=== PATIENT | female | born 1980 | race Caucasian/White ===

== ENCOUNTER 2018-07-20 21:55 | Observation (INO) | payer OTHER ==
[~2018-07-20] VITALS: Ht 157.5 cm; Wt 59.0 kg
[~2018-07-20 21:55] MED LIST: AMOXICILLIN/POTASSIU; CLONAZEPAM 0.50.5 M1 PO; COLACE100 MG PO; CYCLOBENZAPRINE; CYCLOBENZAPRINE5 MG PO; DICLOFENAC SODI75 M1 PO; DICLOFENAC SODI75 MG PO; FISH OIL 1,0001 EAC5 PO; GOLYTELY SOLU4000 ML PO; KEPPRA 500 MG500 MG PO; LO LOESTRIN FE1 EACH PO; LOESTRIN 24 FE1 EACH PO; PERCOCET 5-3251 EACH PO; THERAGRAN-M AD1 EACH; TOPROL XL25 MG PO; VITAMIN D1000 UNI1 PO
[2018-07-20 21:59] VITALS: BP 115/68
[2018-07-20] MEDS ORDERED: TOPAMAX 100 MG100 MG PO (22:08)
[2018-07-20] MEDS ORDERED: FOLIC ACID1 MG PO (22:10)
[2018-07-20] MEDS ORDERED: MS CONTIN 30 MG30 MG PO (22:10)
[2018-07-20] MEDS ORDERED: AMBIEN 5 MG TABL5 M1 PO (22:12)
[2018-07-20] MEDS ORDERED: ORENCIA CL125 MG/1 M SUBQ (22:13)
[2018-07-20] MEDS ORDERED: METHOTREXATE 22.5 MG PO (22:14)
[2018-07-20] MEDS ORDERED: PHENERGAN 25 MG25 M1 PO (22:16)
[2018-07-20] MEDS ORDERED: IMITREX100 MG PO (22:17)
[2018-07-20] MEDS ORDERED: LASIX 20 MG TAB20 MG PO (22:18)
[2018-07-20 22:43] LABS: HEMATOCRIT 53.8 % (37.0-47.0); HEMOGLOBIN 17.3 gm/dL (12.0-15.0); MCH 30.3 pg (26.0-34.0); MCHC 32.2 g/dL (28.0-37.0); MPV 7.2 fl. (7.2-11.1); NUCLEATED RBCS 0 /100WBC; PLATELET COUNT* 509 thou/uL (150-400); RBC 5.73 mil/uL (4.20-5.00); RDW-CV 13.9 % (10.5-14.5); WBC 14.2 thou/uL (4.0-11.0)
[2018-07-20 23:05] LABS: ALBUMIN 4.9 g/dL (3.4-5.0); CALCIUM 11.3 mg/dL (8.5-10.1); MAGNESIUM 2.1 mg/dL (1.8-2.4); POTASSIUM 4.1 mmol/L (3.5-5.1); TOTAL BILIRUBIN 0.3 mg/dL (<0.1-1.0); TOTAL PROTEIN 9.5 g/dL (6.4-8.2)
[2018-07-21 00:28] LABS: ABSOLUTE LYMPHOCYTES 1.6 thou/uL (0.8-5.3); ABSOLUTE MONOCYTES 0.3 thou/uL (0.0-1.2); ABSOLUTE NEUTROPHILS 12.4 thou/uL (1.6-8.1); PLATELET ESTIMATE INCREASED
[2018-07-21 00:29] LABS: LARGE PLATELETS OCCASIONAL
[2018-07-21 01:00] VITALS: BP 118/60
[2018-07-21 04:00] VITALS: BP 122/64
[2018-07-21 08:15] LABS: CALCIUM 9.5 mg/dL (8.5-10.1); CREATININE 1.1 mg/dL (0.6-1.3); PHOSPHORUS* 5.2 mg/dL (2.5-4.9)
[2018-07-21 08:34] VITALS: BP 107/61
[2018-07-21 10:24] LABS: URINE BLOOD NEGATIVE (Negative); URINE CLARITY CLEAR; URINE COLOR YELLOW; URINE GLUCOSE-RANDOM NEGATIVE (Negative); URINE KETONES 1+ (Negative); URINE LEUKOCYTES-REFLEX NEGATIVE (Negative); URINE NITRITE-REFLEX NEGATIVE (Negative); URINE PROTEIN NEGATIVE (Negative); URINE SPECIFIC GRAVITY >= 1.030 (1.005-1.030); URINE UROBILINOGEN 0.2 E.U./dl (0.2-1.0)
[2018-07-21 10:25] LABS: ICTOTEST (BILI CONFIRMATORY) Negative (Negative); URINE BILIRUBIN 2+ (Negative)
[2018-07-21] MEDS ORDERED: THERA-M CAPLET1 EAC2 PO (10:42)
[2018-07-21 10:49] VITALS: BP 107/61
[2018-07-21 11:52] VITALS: BP 108/59
[2018-07-21] MEDS ORDERED: METOPROLOL SUCC25 M1 PO (12:51)
[2018-07-21] MEDS ORDERED: SENNA S TABLET1 EACH PO (12:51)
== END 2018-07-21 15:38 | disposition home or self-care (01) ==
LOC: M.ERS 21:55 → M.TBA-ER 07-21 00:29 → M.2W 07-21 00:29
PROVIDERS: Personal Emergency Response Attendant; ADMIT Internal Medicine
DX: E86.0 Dehydration (principal); K59.03 Drug induced constipation; A08.4 Viral intestinal infection, unspecified; T40.2X5A Adverse effect of other opioids, initial encounter; M08.00 Unspecified juvenile rheumatoid arthritis of unspecified site; R11.2 Nausea with vomiting, unspecified; I47.1 Supraventricular tachycardia; N18.3 Chronic kidney disease, stage 3 (moderate); G89.29 Other chronic pain; G62.9 Polyneuropathy, unspecified; E87.5 Hyperkalemia; Z85.841 Personal history of malignant neoplasm of brain; Z98.890 Other specified postprocedural states; Z88.2 Allergy status to sulfonamides; Z91.041 Radiographic dye allergy status; Z88.8 Allergy status to other drugs, medicaments and biological substances; Z79.899 Other long term (current) drug therapy; Z90.49 Acquired absence of other specified parts of digestive tract

== ENCOUNTER 2018-12-26 15:11 | Emergency (ER) | payer OTHER ==
[~2018-12-26] VITALS: Ht 152.4 cm; Wt 63.5 kg
[~2018-12-26 15:11] MED LIST changes: +AMBIEN 5 MG TABL5 M1 PO; +FOLIC ACID1 MG PO; +IMITREX100 MG PO; +LASIX 20 MG TAB20 MG PO; +METHOTREXATE 22.5 MG PO; +METOPROLOL SUCC25 M1 PO; +MS CONTIN 30 MG30 MG PO; +ORENCIA CL125 MG/1 M SUBQ; +PHENERGAN 25 MG25 M1 PO; +SENNA S TABLET1 EACH PO; +THERA-M CAPLET1 EAC2 PO; +TOPAMAX 100 MG100 MG PO
[2018-12-26 15:43] LABS: URINE BILIRUBIN NEGATIVE (Negative); URINE BLOOD NEGATIVE (Negative); URINE COLOR YELLOW; URINE GLUCOSE-RANDOM NEGATIVE (Negative); URINE KETONES NEGATIVE (Negative); URINE PROTEIN NEGATIVE (Negative); URINE SPECIFIC GRAVITY 1.015 (1.005-1.030); URINE UROBILINOGEN 0.2 E.U./dl (0.2-1.0)
[2018-12-26 15:44] LABS: URINE CLARITY HAZY; URINE LEUKOCYTES-REFLEX 2+ (Negative); URINE NITRITE-REFLEX POSITIVE (Negative)
[2018-12-26] MEDS ORDERED: KEFLEX500 M1 PO ×4 (15:46→15:51)
[2018-12-26] MEDS ORDERED: PHENAZOPYRIDIN200 M2 PO ×3 (15:48→15:51)
[2018-12-26 15:50] LABS: BACTERIA-REFLEX >30 Many /HPF (None Seen); CASTS None Seen /LPF (None Seen); CRYSTALS None Seen /LPF (None Seen); SQUAMOUS 0-3 Few /LPF (0-3); URINE RBC None Seen /HPF (0-2); URINE WBC-REFLEX >25 Many /HPF (0-5)
[2018-12-26 16:00] VITALS: BP 105/45
== END 2018-12-26 16:03 | disposition home or self-care (01) ==
LOC: M.ERS 15:11
PROVIDERS: Emergency Medicine Emergency Medical Services
DX: N39.0 Urinary tract infection, site not specified (principal); Z91.041 Radiographic dye allergy status; Z88.2 Allergy status to sulfonamides; Z88.6 Allergy status to analgesic agent; Z88.5 Allergy status to narcotic agent; Z90.49 Acquired absence of other specified parts of digestive tract

== ENCOUNTER 2019-01-20 05:58 | Observation (INO) | payer OTHER ==
[~2019-01-20] VITALS: Ht 157.5 cm; Wt 60.7 kg
[~2019-01-20 05:58] MED LIST changes: +KEFLEX500 M1 PO; +PHENAZOPYRIDIN200 M2 PO
[2019-01-20 06:12] VITALS: BP 118/77
[2019-01-20 06:39] LABS: HEMATOCRIT 48.9 % (37.0-47.0); HEMOGLOBIN 16.1 gm/dL (12.0-15.0); MCH 31.5 pg (26.0-34.0); MCV 95.4 fL (80.0-100.0); MPV 7.9 fl. (7.2-11.1); NUCLEATED RBCS 0 /100WBC; PLATELET COUNT* 510 thou/uL (150-400); RBC 5.12 mil/uL (4.20-5.00); RDW-CV 13.8 % (10.5-14.5)
[2019-01-20 06:43] LABS: CALCIUM 9.8 mg/dL (8.5-10.1); CREATININE 1.1 mg/dL (0.6-1.3); POTASSIUM 3.1 mmol/L (3.5-5.1)
[2019-01-20 06:47] LABS: ALBUMIN 4.8 g/dL (3.4-5.0); TOTAL BILIRUBIN 0.4 mg/dL (<0.1-1.0); TOTAL PROTEIN 8.9 g/dL (6.4-8.2)
[2019-01-20 07:43] LABS: ABSOLUTE LYMPHOCYTES 1.1 thou/uL (0.8-5.3); ABSOLUTE MONOCYTES 0.4 thou/uL (0.0-1.2); ABSOLUTE NEUTROPHILS 12.5 thou/uL (1.6-8.1); PLATELET ESTIMATE INCREASED
[2019-01-20 09:25] LABS: URINE BLOOD NEGATIVE (Negative); URINE CLARITY CLEAR; URINE COLOR YELLOW; URINE GLUCOSE-RANDOM NEGATIVE (Negative); URINE KETONES 1+ (Negative); URINE LEUKOCYTES-REFLEX NEGATIVE (Negative); URINE NITRITE-REFLEX NEGATIVE (Negative); URINE PROTEIN TRACE (Negative); URINE SPECIFIC GRAVITY 1.025 (1.005-1.030); URINE UROBILINOGEN 0.2 E.U./dl (0.2-1.0)
[2019-01-20 09:27] LABS: ICTOTEST (BILI CONFIRMATORY) Negative (Negative); URINE BILIRUBIN 1+ (Negative)
--- NOTE | 2019-01-20 10:01 | EKG ---
[place] [address] ELECTROCARDIOGRAM REPORT Name: SYDNI CALDWELL Room: [place] [address] ADM IN [facility]#: [id number] Admission: 01/20/19 Attend Phys: Jeffery Quick, Discharge: Date of : 82 Report #: [id number] THIS REPORT FOR: //name// [facility] ED Test Date: 2019-01-20 Test Time: 06:45:49 Pat Name: SYDNI CALDWELL Department: Room: [facility] Gender: F Supply Chain Logistics Manager: KALIE : 1980 Requested By: Annia Burnett Order Number: [id number] MD: Yuri Diaz Measurements Intervals [place] Rate: 67 P: 13 MI: 122 QRS: 24 QRSD: 104 T: 49 QT: 594 QTc: 628 Interpretive Statements Sinus rhythm RSR' in V1 or V2, right VCD or RVH Prolonged QT interval Compared to ECG 03/21/2006 15:36:27 RSR' in V1 or V2 now present Prolonged QT interval now present Sinus tachycardia no longer present Electronically Signed On 01-20-2019 10:01:23 CDT by Yuri Diaz [email or web address] <ELECTRONICALLY SIGNED> By: Yuri Diaz MD, FACC 01/20/19 1001 [id number] Yuri Diaz MD, FACC /EPI
[2019-01-20 12:01] VITALS: BP 122/56
[2019-01-20 17:02] VITALS: BP 102/58
[2019-01-20 17:15] VITALS: BP 94/44
--- NOTE | 2019-01-20 18:32 | NUR ---
PT ADMITTED TO ROOM 223 VIA BED FROM ED AT APPROXIMATELY 1715 WITH NAUSEA, VOMITING AND DEHYDRATION. PT COMPLAINS OF NAUSEA AND GENERALIZED PAIN. TREATED WITH SCHEDULED COMPAZINE AND PRN FLEXERIL AND PERCOCET WITH PARTIAL RELIEF. ADMISSION ASSESSMENT AND HISTORY COMPLETED. REFER TO CHARTING. HOME MEDICATIONS RECONCILED. SEPSIS SCREENING COMPLETED-NEGATIVE. PT A&0X4, TRACING SR ON THE PHOTO MASK INSPECTOR. CARDIO CONSULT IN PLACE FOR HISTORY SVT. ON RA SAT 96%, DENIES ANY SHORTNESS OF BREATH. IVF. PT UP AD TIFFANI IN ROOM. STOOL SAMPLE NEEDS TO BE OBTAINED. PT AT BEDSIDE. MEDICATIONS PER MAR. PT REPOSITIONS SELF. HOURLY ROUNDING OBSERVED. BED IN LOW POSITION. CALL LIGHT WITHIN REACH. WILL CONTINUE PLAN OF CARE.
[2019-01-20 19:45] VITALS: BP 95/47
[2019-01-21 00:35] VITALS: BP 96/52
[2019-01-21 04:00] VITALS: BP 100/53
--- NOTE | 2019-01-21 05:32 | NUR ---
PT SLEPT MOST OF SHIFT. ASSESSMENT DOCUMENTED. MEDS GIVEN PER E-MAR. IV PATENT, FLUIDS INFUSING. PAIN MEDS GIVEN PER E-MAR WITH RELIEF. PT REPORTED RESOLVED NAUSEA. PT STATES HER ALLERGIES ARE STARTING TO BOTHER HER. WILL CONTINUE WITH PLAN OF CARE.
[2019-01-21 05:42] LABS: MCH 32.5 pg (26.0-34.0); MCHC 33.9 g/dL (28.0-37.0); RBC 3.44 mil/uL (4.20-5.00); RDW-CV 13.7 % (10.5-14.5); WBC 8.5 thou/uL (4.0-11.0)
[2019-01-21 05:53] LABS: HEMOGLOBIN 11.2 gm/dL (12.0-15.0)
[2019-01-21 06:20] LABS: ALBUMIN 2.7 g/dL (3.4-5.0); CALCIUM 7.6 mg/dL (8.5-10.1); CREATININE 0.7 mg/dL (0.6-1.3); MAGNESIUM 1.8 mg/dL (1.8-2.4); POTASSIUM 3.5 mmol/L (3.5-5.1); TOTAL BILIRUBIN 0.4 mg/dL (<0.1-1.0); TOTAL PROTEIN 5.2 g/dL (6.4-8.2)
[2019-01-21 08:00] VITALS: BP 109/61
--- NOTE | 2019-01-21 09:00 | NUR ---
ASSUMED CARE OF PT AT 0730. PT RESTING IN BED WAITING FOR BREAKFAST. PT A&0X4, DENIES ANY PAIN, NAUSEA OR SHORTNESS OF BREATH AT THIS TIME. TRACING SR ON THE WIRE SAW OPERATOR. ON RA SAT UPPER 90'S. PT UP AD TIFFANI IN ROOM. PT GOAL FOR TODAY IS REMAIN FREE FROM NAUSEA, CARDIOLOGY CONSULT IN PLACE AND OBTAIN STOOL SAMPLE. AM ASSESSMENT CHARTED. MEDICATIONS PER MAR. PT REPOSITIONS SELF. HOURLY ROUNDING OBSERVED. BED IN LOW POSITION. CALL LIGHT WITHIN REACH. WILL CONTINUE PLAN OF CARE.
[2019-01-21 12:14] VITALS: BP 106/60
--- NOTE | 2019-01-21 12:24 | NUR ---
MET WITH PT TO DISCUSS HOME SITUATION/DC PLANNING. PT LIVES WITH SPOUSE AND CHILDREN. SHE IS INDEPENDENT. USES NO EQUIPMENT. HAS BEEN TO IN REHAB AT [facility] IN PAST AFTER A BRAIN TUMOR SURGERY AND HAD HH. PT DENIES ANY DC NEEDS AT THIS TIME. PLANS TO RETURN HOME AT DC. WILL FOLLOW
[2019-01-21 16:05] VITALS: BP 106/60
--- NOTE | 2019-01-21 18:12 | NUR ---
DISCHARGE ORDERS RECEIVED. DISCHARGE INSTRUCTIONS, CARE NOTES AND FOLLOW UP APPTS GIVEN TO PT. PT COMMUNICATES UNDERSTANDING OF DISCHARGE TEACHING. IV AND RESOURCE RECOVERY ENGINEER REMOVED. PT DISCHARGED WITH ALL BELONGINGS AND PAPERWORK VIA WHEELCHAIR WITH NURSING STAFF TO SPOUSE OWN PERSONAL VEHICLE.
--- NOTE | 2019-01-25 19:18 | CON ---
[address] [address] CONSULTATION Name: SYDNI CALDWELL Xochilt Room: [address] Pino Butcher#: [id number] Admission: 01/20/19 Attend Phys: Jeffery Quick, Discharge: 01/21/19 Date of : 82 Report #: [id number] THIS REPORT FOR: //name// CC: Rajiv Quick DATE OF SERVICE: 01/21/2019 CARDIOLOGY CONSULTATION HISTORY OF PRESENT ILLNESS: The patient is a 39-year-old white female who I was asked to see in the hospital today because of her previous history of tachycardia. The history is obtained from the patient as there are no family members or old records available. She states that she has had a history of PSVT since she was 18 years old. She eventually underwent radiofrequency ablation at [facility] in 02/2017. She apparently had an echocardiogram at that time, but no stress test. Recently, she has been followed by Dr. Arnoldo Begum, a raker buffing wheel, in [place], [place]. She states after the ablation, she was placed on metoprolol. Since that time, she has had no significant tachyarrhythmias. 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 She is not very active at this time. She states she was doing well until 3 days ago, she waked up in the morning and felt nausea and vomiting. She also had some loose stools. Yesterday, the vomiting and loose stools continued, so she came to the Emergency Room here at [facility] and was admitted. Last night, she is able to eat dinner and today has had no more vomiting. She denied any fever, abdominal pain, blood in her vomit or diarrhea. Because of her history of tachycardia, Cardiology consultation was requested. She denies a history of chest pain, shortness of breath or syncope. PAST MEDICAL HISTORY: Otherwise significant, she is a G1, P1. Last menstrual period has been irregular, although her has a vasectomy. PREVIOUS SURGERY: Included a cholecystectomy. She has had surgery on her fingers in the past. 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 CURRENT MEDICATIONS: Include metoprolol twice a day and methotrexate. She is on an injectable for her arthritis. She still sees a sampler and test preparer. ALLERGIES: SHE HAS AN ALLERGY TO SULFA, CT SCAN CONTRAST. FAMILY HISTORY: Her mother had a stent. SOCIAL HISTORY: She is . She and her live here in [place]. She is not working at this time. No smoking or 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 REVIEW OF SYSTEMS: She has had no history of stroke, seizures, asthma, or liver disease. She apparently had a CT scan of the abdomen in the past that showed evidence of a kidney stone. No cancer. No psychiatric illness. PHYSICAL EXAMINATION: GENERAL: Revealed a young white female lying in bed. She appeared in no acute distress. VITAL SIGNS: She had a blood pressure of 108/64, pulse is 80. She is afebrile. HEENT: She was anicteric. Conjunctivae are pink. Mucous membranes are moist. NECK: Veins do not appear distended. CHEST: Clear to auscultation. CARDIOVASCULAR: Regular rate and rhythm without murmur. ABDOMEN: Soft. EXTREMITIES: Had no edema. Posterior tibial pulse 2+ bilaterally. SKIN: Warm and dry. NEUROLOGIC: Nonfocal. MUSCULOSKELETAL: She did have some deformities of the interphalangeal joints of the upper extremities. RADIOLOGICAL DATA: Her ECG showed a sinus rhythm. There is a short RI interval, nonspecific ST segment changes. Her workup in the Emergency Room yesterday, she had x-ray performed of the abdomen that showed nonspecific bowel gas pattern. LABORATORY WORK: Sodium 145, potassium 3.5, creatinine 0.7. Liver function studies were normal. Troponin 0.06. TSH in June was 2.3. White blood cell count 8.5, hematocrit 33. IMPRESSION AND RECOMMENDATIONS: 1. History of paroxysmal supraventricular tachycardia. No significant recurrences following ablation 2 years ago. I would continue metoprolol. 2. History of previous removal of a benign brain tumor. 3. Juvenile rheumatoid arthritis. The patient is followed by Rheumatology. 4. Nausea, vomiting, and diarrhea. Suspect gastroenteritis. <ELECTRONICALLY SIGNED> By: Yuri Diaz MD, FACC 01/25/19 1918 [id number] Diaz MD, FACC /nt
== END 2019-01-21 18:14 | disposition home or self-care (01) ==
LOC: M.ERS 05:58 → M.2W 07:26 → M.TBA-ER 07:26 → M.2W 07:26
PROVIDERS: Personal Emergency Response Attendant; ADMIT Family Medicine
DX: R11.2 Nausea with vomiting, unspecified (principal); I47.1 Supraventricular tachycardia; M08.00 Unspecified juvenile rheumatoid arthritis of unspecified site; R19.7 Diarrhea, unspecified; Z79.899 Other long term (current) drug therapy